=== PATIENT | male | born 1985 | race Two or more races ===

== ENCOUNTER 2019-09-21 19:44 | Emergency (ER) | payer BC ==
[2019-09-21 19:50] VITALS: BP 128/85
[2019-09-21] MEDS ORDERED: CEFTRIAXONE INJ 1000 MG VIAL IM ONE (19:53)
--- NOTE | 2019-09-21 19:55 | ER Document Report ---
ED Medical Screen (RME) - General Chief Complaint: Insect Bite Stated Complaint: POSSIBLE SPIDER BITE Notes: Patient is a 33-year-old male with a past medical history of spider bite to the right lower extremity with secondary abscess and cellulitis who presents today with a chief complaint of suspected spider bite to the left posterior thigh. He states it began on Tuesday. He does not recall being bit by spider, did not see a spider. States he began to develop an abscess formation on Tuesday. He called in on Tuesday to [facility] who gave him prescription for Bactrim. He states he is been taking that but despite it the wound seems to be worsening. He states he "popped it" yesterday. States he worked all day today, then a seated position and the area has seemed to spread. He admits to fevers. Denies chills, night sweats, nausea or vomiting. States last time he had this it took Rocephin to get rid of it I have treated and performed a rapid initial assessment of this patient. A comprehensive ED assessment and evaluation of the patient, analysis of test results and completion of medical decision making process will be conducted by additional ED providers. PHYSICAL EXAMINATION: GENERAL: Well-appearing, well-nourished and in no acute distress. A&Ox4. Answers questions appropriately. - Related Data Allergies/Adverse Reactions: No Known Allergies Allergy (Verified 02/02/13 07:25) Home Medications: BACTRIM Past Medical History Pulmonary Medical History: Denies: Hx Tuberculosis Psychiatric Medical History: Denies: Hx Depression - Immunizations Immunizations up to date: Yes Hx Diphtheria, Pertussis, Tetanus Vaccination: Yes Physical Exam - Vital signs Vitals: Temp Pulse Resp BP Pulse Ox 98.7 F 108 H 16 128/85 H 100 09/21/19 19:48 09/21/19 19:48 09/21/19 19:48 09/21/19 19:48 09/21/19 19:48 Course - Vital Signs Vital signs: Temp Pulse Resp BP Pulse Ox 98.7 F 108 H 16 128/85 H 100 09/21/19 19:48 09/21/19 19:48 09/21/19 19:48 09/21/19 19:48 09/21/19 19:48
[2019-09-21] MEDS ORDERED: LIDOCAINE 1% INJ-PF (10 MG/ML) 30 ML SDV ONE (20:01)
[2019-09-21] MEDS ORDERED: LIDOCAINE 1% INJ (10 MG/ML) 10 ML MDV INJ ONE (20:14)
[2019-09-21 20:27] LABS: ABSOLUTE LYMPHOCYTES (AUTO) 1.4 10^3/uL (0.5-4.7); ABSOLUTE MONOCYTES (AUTO) 0.9 10^3/uL (0.1-1.4); ABSOLUTE NEUT (AUTO) 12.4 10^3/uL (1.7-8.2); BASOPHILS % (AUTO) 0.3 % (0-2); EOSINOPHILS % (AUTO) 0.2 % (0-6); HEMATOCRIT 45.4 % (37.9-51.0); HEMOGLOBIN 16.3 g/dL (13.5-17.0); LYMPHOCYTES % (AUTO) 9.6 % (13-45); MEAN CORPUSCULAR HEMOGLOBIN 31.6 pg (27.0-33.4); MEAN CORPUSCULAR HGB CONC 35.8 g/dL (32.0-36.0); MEAN CORPUSCULAR VOLUME 88 fl (80-97); MONOCYTES % (AUTO) 6.2 % (3-13); PLATELET COUNT 235 10^3/uL (150-450); RED BLOOD COUNT 5.15 10^6/uL (4.35-5.55); SEGMENTED NEUTROPHILS % (AUTO) 83.7 % (42-78); TOTAL CELLS COUNTED % (AUTO) 100 %; WHITE BLOOD COUNT 14.8 10^3/uL (4.0-10.5)
[2019-09-21 20:42] LABS: ALBUMIN 4.7 g/dL (3.5-5.0); ALKALINE PHOSPHATASE 49 U/L (38-126); ANION GAP 11 (5-19); ASPARTATE AMINO TRANSFERASE 18 U/L (17-59); BILIRUBIN,TOTAL 1.6 mg/dL (0.2-1.3); BLOOD UREA NITROGEN 11 mg/dL (7-20); CALCIUM 9.5 mg/dL (8.4-10.2); CARBON DIOXIDE 26 mmol/L (22-30); CHLORIDE 101 mmol/L (98-107); GLUCOSE 170 mg/dL (75-110); POTASSIUM 4.1 mmol/L (3.6-5.0); TOTAL PROTEIN 7.9 g/dL (6.3-8.2)
--- NOTE | 2019-09-21 20:48 | ER Document Report ---
ED General - General Chief Complaint: Insect Bite Stated Complaint: POSSIBLE SPIDER BITE Time Seen by Provider: 09/21/19 20:46 Mode of Arrival: Ambulatory Information source: Patient Notes: Lata notes Patient is a 33-year-old male with a past medical history of spider bite to the right lower extremity with secondary abscess and cellulitis who presents today with a chief complaint of suspected spider bite to the left posterior thigh. He states it began on Tuesday. He does not recall being bit by spider, did not see a spider. States he began to develop an abscess formation on Tuesday. He called in on Tuesday to [facility] who gave him prescription for Bactrim. He states he is been taking that but despite it the wound seems to be worsening. He states he "popped it" yesterday. States he worked all day today, then a seated position and the area has seemed to spread. He admits to fevers. Denies chills, night sweats, nausea or vomiting. States last time he had this it took Rocephin to get rid of it my notes 33-year-old male arrives with chief complaint of 5-day history of spider bite to the left posterior thigh. 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 Patient reports he had 1 year ago and a spider bite on his right leg and received Rocephin shot at that time. 1 year ago the Rocephin shot helped with his spider bite problems. He was seen by his personal doctor 3 days ago and placed on but continued to have problems and therefore came in today for Rocephin shot". TRAVEL OUTSIDE OF THE [place] IN LAST 30 DAYS: No - HPI Onset: Other - 5 days ago Onset/Duration: Sudden, Persistent Quality of pain: Achy Severity: Mild Pain Level: 1 - Related Data Allergies/Adverse Reactions: No Known Allergies Allergy (Verified 02/02/13 07:25) Home Medications: BACTRIM Past Medical History - General Information source: Patient - Social History Smoking Status: Never Smoker Cigarette use (# per day): No Chew tobacco use (# tins/day): No Drug Abuse: None Lives with: Family Family History: Reviewed & Not Pertinent Patient has suicidal ideation: No Patient has homicidal ideation: No Pulmonary Medical History: Denies: Hx Tuberculosis Psychiatric Medical History: Denies: Hx Depression - Immunizations Immunizations up to date: Yes Hx Diphtheria, Pertussis, Tetanus Vaccination: Yes Review of Systems - Review of Systems Constitutional: See HPI, Malaise EENT: No symptoms reported Cardiovascular: No symptoms reported Respiratory: No symptoms reported Gastrointestinal: No symptoms reported Genitourinary: No symptoms reported Male Genitourinary: No symptoms reported Musculoskeletal: No symptoms reported Skin: See HPI, Other - abscess Hematologic/Lymphatic: No symptoms reported Neurological/Psychological: No symptoms reported Physical Exam - Vital signs Vitals: Temp Pulse Resp BP Pulse Ox 98.7 F 108 H 16 128/85 H 100 09/21/19 19:48 09/21/19 19:48 09/21/19 19:48 09/21/19 19:48 09/21/19 19:48 Interpretation: Tachycardic - General General appearance: Alert - HEENT Head: Normocephalic, Atraumatic Eyes: Normal Pupils: PERRL Sinus: Normal Nasal: Normal Mouth/Lips: Normal Pharynx: Normal Neck: Normal - Respiratory Respiratory status: No respiratory distress Chest status: Nontender Breath sounds: Normal Chest palpation: Normal - Cardiovascular Rhythm: Regular Heart sounds: Normal auscultation Murmur: No - Abdominal Inspection: Normal Distension: No distension Bowel sounds: Normal Tenderness: Nontender Organomegaly: No organomegaly - Back Back: Normal - Extremities General upper extremity: Normal inspection General lower extremity: Normal inspection - Neurological Neuro grossly intact: Yes Cognition: Normal Orientation: AAOx4 Anju Coma Scale Eye Opening: Spontaneous Anju Coma Scale Verbal: Oriented Anju Coma Scale Motor: Obeys Commands [place] Coma Scale Total: 15 Speech: Normal Cranial nerves: Normal Cerebellar coordination: Normal Motor strength normal: LUE, RUE, LLE, RLE - Psychological Associated symptoms: Normal affect - Skin Skin Temperature: Warm Skin Moisture: Dry Skin Color: Other - Left posterior skin abscess question spider bite approximately 8 cm diameter tender to palpation Course - Vital Signs Vital signs: Temp Pulse Resp BP Pulse Ox 98.7 F 108 H 16 128/85 H 100 09/21/19 19:48 09/21/19 19:48 09/21/19 19:48 09/21/19 19:48 09/21/19 19:48 - Laboratory Result Diagrams: 09/21/19 20:10 09/21/19 20:10 Laboratory results interpreted by me: 09/21/19 09/21/19 20:10 20:10 WBC 14.8 H Lymph % (Auto) 9.6 L Absolute Neuts (auto) 12.4 H Seg Neutrophils % 83.7 H Glucose 170 H Total Bilirubin 1.6 H Critical Care Note - Critical Care Note Total time excluding time spent on procedures (mins): 60 Discharge - Discharge Clinical Impression: Spider bite wound Qualifiers: Encounter type: initial encounter Injury intent: undetermined intent Qualified Code(s): T63.304A - Toxic effect of unspecified spider venom, undetermined, initial encounter Condition: Good Disposition: HOME, SELF-CARE Additional Instructions: Keep wound clean and dry and wash wound with Hibiclens soap daily; take both Septra and Keflex as directed and encourage fluids and I would avoid warm compresses to avoid swelling of the spider bite. Prescriptions: Dexamethasone [Decadron 4 Mg Tablet] 4 mg PO BID #8 tablet Cephalexin Monohydrate [Keflex 500 mg Capsule] 500 mg PO BID 10 Days #20 capsule Forms: Return to Work
[2019-09-21] MEDS ORDERED: DEXAMETHASONE 4 MG TABLET PO ONE (21:12)
== END 2019-09-21 21:53 | disposition home or self-care (01) ==
LOC: ER 19:44
DX: T63.304A Toxic effect of unspecified spider venom, undetermined, initial encounter (principal); L02.415 Cutaneous abscess of right lower limb
CPT/HCPCS: 99284; 96372; 36415; 85025; 80053; J8540; J0696